=== PATIENT | female | born 1965 | race Caucasian/White ===

== ENCOUNTER → 2017-08-15 | Outpatient (CLI) | payer BC ==
--- NOTE | 2017-08-15 17:33 | PCVCIMAG ---
APPROVED REPORT Exam: Stress Echocardiogram Indication: Hypertension, Fam. hx. CAD Patient Location: Echo lab Stress Nurse: Kimberly Hunt RN Status: routine Ht: 5 ft 4 in HR: 95 bpm Procedure The patient underwent an Exercise Stress Test using the Agustin Protocol. Blood pressure, heart rate, and EKG were monitored. An Echocardiogram was performed by medical technician assistant in four stages in quad fashion. At peak stress, four selected images were obtained and placed side by side with resting images for comparison. Stress Test Details Stress Test: Exercise stress testing was performed using a Agustin protocol. HR Resting HR: 95 bpmMax Heart Rate (APMHR): 167 bpm Max HR Achieved: 200 bpmTarget HR (85% APMHR): 141 bpm % of APMHR: 119 HR response to stress: Normal HR response to stress BP Resting BP: 130/80 mmHg Max BP: 220/100 mmHg ECG Resting ECG: Sinus Rhythm Stress ECG: Sinus Rhythm Clinical Reason for Termination: Maximal effort Exercise duration: 6 min 32 sec Highest Stage Achieved: Stage 3: 3.4 mph at 14% grade. Exercise capacity: 8.60 METs Pre-Stress Echo The resting Echocardiogram showed normal left ventricular contractility with an estimated Ejection Fraction of about 55-60%. Normal wall motion in all segments on baseline images. Post-Stress Echo The stress Echocardiogram showed normal left ventricular contractility with an estimated Ejection Fraction of about 60-65%. Normal augmentation of wall motion in all segments on post stress images. Clinical No clinical or ECG evidence for ischemia. Conclusion Clinical Response: Non-ischemic Exercise Capacity: Average Stress ECG Response: Non-ischemic Stress Echo Images: Non-ischemic Mild left ventricular hypertrophy. <Conclusion> Mild left ventricular hypertrophy.
== END | disposition home or self-care (01) ==
LOC: PCVCIMAG 15:57
PROVIDERS: ATTEND Internal Medicine Cardiovascular Disease
DX: I51.7 Cardiomegaly (principal); M54.9 Dorsalgia, unspecified; I10 Essential (primary) hypertension; F17.200 Nicotine dependence, unspecified, uncomplicated; Z82.49 Family history of ischemic heart disease and other diseases of the circulatory system
CPT/HCPCS: 93325; 93351